=== PATIENT | male | born 1995 | race American Indian/Alaskan Native ===

== ENCOUNTER 2019-04-29 10:28 | Outpatient (CLI) | payer BC ==
[2019-04-29 11:14] LABS: Hematocrit 48.4 % (35.5-45.6); Hemoglobin 16.1 gm/dl (11.8-15.2); Mean Corpuscular HGB Conc 33 % (32-34); Mean Corpuscular Volume 81 fl (84-94); Platelet Count 264 K/mm3 (140-440); Red Blood Count 5.95 M/mm3 (3.65-5.03); Red Cell Distribution Width 15.2 % (13.2-15.2)
[2019-04-29 11:37] LABS: Alanine Aminotransferase 29 units/L (7-56); Albumin 4.5 g/dL (3.9-5); BUN/Creatinine Ratio 11; Blood Urea Nitrogen 9 mg/dL (9-20); Calcium 9.5 mg/dL (8.4-10.2); Chol/HDL Ratio 5.14 %; HDL Cholesterol 34 mg/dL (40-59); Hemolysis Index 0; LDL Cholesterol,Direct 125 mg/dL (50-130)
[2019-04-29 11:44] LABS: Free T4 (Free Thyroxine) 1.12 ng/dL (0.76-1.46)
[2019-05-04 05:53] LABS: Vitamin D, 25-OH, D2 <4 ng/mL
[2019-05-11 07:09] LABS: HIV-2 Antibody Differentiation SEE SCANNED RESULT
[2019-05-11 07:10] LABS: HIV-1 Antibody Differentiation SEE SCANNED RESULT
== END 2019-04-29 10:29 | disposition home or self-care (01) ==
LOC: LAB 10:28
PROVIDERS: ATTEND Internal Medicine
DX: Z13.228 Encounter for screening for other metabolic disorders (principal); Z11.3 Encounter for screening for infections with a predominantly sexual mode of transmission; Z13.0 Encounter for screening for diseases of the blood and blood-forming organs and certain disorders involving the immune mechanism
CPT/HCPCS: 36415; 80053; 80061; 82306; 83036; 84439; 84443; 85027; 86592; 86689; 87591